=== PATIENT | male | born 1985 | race Caucasian/White ===

== ENCOUNTER 2023-10-15 15:16 | Emergency (ER) | payer BC, SELFPAY ==
[2023-10-15 15:19] VITALS: BP 165/97
[2023-10-15 15:49] LABS: Urine Albumin Negative (Neg - Trace); Urine Bilirubin Negative (Negative); Urine Character Clear (Clear); Urine Color Yellow; Urine Glucose Negative (Negative); Urine Ketone Negative (Negative); Urine Leukocyte Negative (Negative); Urine Nitrite Negative (Negative); Urine Occult Blood Negative (Negative); Urine Specific Gravity 1.015 (<1.030); Urine Urobilinogen Negative (Neg - 1+)
[2023-10-15 19:16] VITALS: BP 157/98
--- NOTE | 2023-10-15 19:22 | ED.GENMED ---
History of Present Illness
General
Chief Complaint: Male Genito-Urinary Symptoms
Source: patient
Exam Limitations: none
Time Seen by Provider: 10/15/23 18:05
Nursing documentation reviewed up to this point in time: agreed with
History of Present Illness
History of Present Illness:
38-year-old male past medical history of thyroid disease presenting to the emergency department today with concerns of left-sided testicular discomfort over the past few days. Claims he may have gotten hit in the scrotum by his son while wrestling
few days prior. Has noticed persisting achiness with radiation to his lower abdomen. Denies associated urinary symptoms nausea vomiting or diarrhea. Denies any new sexual contact.
Past History
Past History
ED Past Medical History: None
ED Past Surgical History: Orthopedic
Social History
Tobacco: Non-smoker
Alcohol: None
Drug: None
Personal: Single
Living: with family
Employment: Employed
Family History
Family History: Other (Noncontributory)
Review of Systems
Review of Systems
Allergies reviewed?: Yes
All Other Systems: ROS reviewed and negative except as documented in HPI and ROS
Phy Exam
Physical Exam
Physical Exam:
GENERAL: Alert , in no apparent distress
EYE: pupils equal and reactive
NECK: Supple, no significant adenopathy.
ENT: o/p clr, mmm.
CARDIAC: Regular rate and rhythm .
LUNGS: Clear breath sounds bilaterally, no acute respiratory distress, no wheezes/rales/rhonchi
ABDOMEN: Mild discomfort to the area just above the left testicle. No significant redness or warmth no fluctuance or induration. No hernia soft, without focal tenderness, no r/g, no cvat
NEUROLOGICAL: Alert and oriented, no focal neuro deficits
SKIN: Warm and dry, skin intact.
MUSCULOSKELETAL: No edema, well perfused.
PSYCH: Normal and appropriate interaction.
Course
Orders/Labs/Results
Orders:
Orders
10/15/23 15:26
US Scrotum Urgent
Comment:
Reason For Exam: testicular pain
10/15/23 15:29
Urinalysis Reflex To Culture Urgent
Date Specimen was Collected: 10/15/23
Time Specimen was Collected: 15:26
Vital Signs
Initial and Last Documented VS:
Initial Vital Signs
Temp Pulse Resp BP Pulse Ox
98.3 F 73 18 165/97 96
10/15/23 15:19 10/15/23 15:19 10/15/23 15:19 10/15/23 15:19 10/15/23 15:19
Last Documented Vital Signs
Temp Pulse Resp BP Pulse Ox
98.3 F 68 18 157/98 98
10/15/23 15:19 10/15/23 19:16 10/15/23 15:19 10/15/23 19:16 10/15/23 19:16
MDM/Problems Addressed
MDM/Problems Addressed:
38-year-old male presenting to the emergency department with concerns of left scrotal discomfort over the past few days. Urinalysis here without any signs. Ultrasound showing left-sided varicocele which likely explains patient's symptoms. He was
advised for urology follow-up but otherwise stable for discharge return precautions given.
*Critical Care Note
Total Time (30-74mins, 75-104mins- exclusive of procedures): Not Applicable
ED Attending Note
-
Portions of this chart may have been created with voice recognition software.� Occasional wrong word or��sound alike� substitutions may have occurred due to the inherent limitations of voice recognition software.
Discharge Plan
Departure
Patient Disposition: Home (Routine Discharge)
Date of Disposition: 10/15/23
Time of Disposition: 19:22
Patient with high blood pressure during this ER visit?: No
Condition: Good
Covid-19: Not Applicable
Discharge Problem:
Left varicocele
Instructions: Varicocele
Prescriptions:
No Action
cyclobenzaprine 10 MG tablet
10 mg PO TIDPRN PRN (Reason: muscle spasm) Qty: 12 0RF
ibuprofen 600 MG tablet
600 mg PO Q6H Qty: 30 0RF
diclofenac sodium 75 MG tablet,delayed release (DR/EC)
75 mg PO BID Qty: 10 0RF
cyclobenzaprine 10 MG tablet
10 mg PO TIDPRN PRN (Reason: pain/spasm) Qty: 14 0RF
Referrals:
Romeo Mancuso MD [Family Provider] -
Adalberto Cortez MD [Active] - Follow up in 1 week
Activity Restrictions/Additional Instructions:
You came to the emergency department today with concerns of scrotal discomfort. You are found to have a varicocele. Please rest the area with hopeful improvement over time if there is no improvement please follow-up closely with urology. Return
to the emergency department for any worsening, new or concerning symptoms.
Interventions
Interventions:
*Risk Screen - Suicide Last Done: 10/15/23 15:19
*General Assessment Last Done: 10/15/23 15:19
*Neglect/Abuse Screening Last Done: 10/15/23 15:19
Discharge Date and Time
Print Language: IRISH
[2023-10-15 19:37] VITALS: BP 146/93
== END 2023-10-15 19:37 | disposition home or self-care (01) ==
LOC: EMR 15:16
PROVIDERS: Physician Assistant; EMERGENCY PHYSICIAN Student in an Organized Health Care Education/Training Program; FAMILY PHYSICIAN Family Medicine
DX: I86.1 Scrotal varices (principal); N50.82 Scrotal pain; E07.9 Disorder of thyroid, unspecified
CPT/HCPCS: 99284; 76870; 81003; 93976